=== PATIENT | female | born 1945 | race African-American/Black ===

== ENCOUNTER 2017-04-24 06:42 | Emergency (ER) | payer OTHER ==
[~2017-04-24] VITALS: Ht 170.2 cm; Wt 86.0 kg
[~2017-04-24 06:42] MED LIST: AMLO10TA80 PO; ASPI-1159 PO; CYANOCOBALAMIN PO; DIM PO; ESTR1VAG4 VG; LABE200T28 PO; LEVOMEFOLATE PO; LOSA100T14 PO; NATURE-THROID PO; [UNRECOGNIZED DRUG - OTHER] PO; [UNRECOGNIZED DRUG - OTHER] PO; [UNRECOGNIZED DRUG - OTHER] PO; [UNRECOGNIZED DRUG - OTHER] PO
[2017-04-24] MEDS ORDERED: DEXAMETHASONE 10 MG/ML VIAL IM ONE (10:30)
[2017-04-24] MEDS ORDERED: LIDOCAINE HCL 1% 20ML VIAL (Pyxis) INJ MC ONE (10:30)
[2017-04-24] MEDS ORDERED: IBUPROFEN 400MG TABLET PO ONE (10:30)
[2017-04-24 10:34] VITALS: BP 133/46
== END 2017-04-24 10:57 | disposition home or self-care (01) ==
LOC: ER 07:27
DX: L72.3 Sebaceous cyst (principal); I10 Essential (primary) hypertension; E05.90 Thyrotoxicosis, unspecified without thyrotoxic crisis or storm; Z79.82 Long term (current) use of aspirin; Z79.899 Other long term (current) drug therapy
CPT/HCPCS: 96372; 99283; J1100; J3490